=== PATIENT | male | born 1985 | race Caucasian/White ===

== ENCOUNTER 2021-05-10 21:41 | Emergency (ER) | payer SELFPAY ==
[~2021-05-10] VITALS: Ht 162.6 cm; Wt 82.0 kg
[2021-05-10] MEDS ORDERED: MAGNESIUM/ALUMINUM HYDROXIDE/SIMETHICONE 30ML UDC PO STA (22:50)
[2021-05-10] MEDS ORDERED: ONDANSETRON 4MG ODT PO ONE (23:00)
[2021-05-11 00:20] LABS: BASOPHILS % 0.3 % (0.0-2.0); EOSINOPHILS % 0.4 % (0.0-5.0); HEMATOCRIT. 40.7 % (42.0-52.0); LYMPHOCYTES % 15.1 % (20.0-50.0); MEAN CORPUSCULAR HEMOGLOBIN 29.8 pg (28.0-32.0); MEAN CORPUSCULAR VOLUME 86.8 fL (80.0-94.0); MEAN PLATELET VOLUME 8.3 fl (7.4-10.4); NEUTROPHILS % 81.2 % (40.0-76.0); PLATELET 274 x1000/uL (130-400); RED BLOOD CELL COUNT 4.68 mill/uL (4.7-6.1); RED CELL DISTRIBUTION WIDTH 13.2 % (11.6-14.6)
[2021-05-11 00:27] LABS: CHLORIDE 108 mEq/L (98-107)
[2021-05-11 00:31] LABS: ETHANOL BLOOD 270 mg/dL
[2021-05-11 01:40] VITALS: BP 123/64
== END 2021-05-11 01:46 | disposition home or self-care (01) ==
LOC: ER 21:41
DX: K29.20 Alcoholic gastritis without bleeding (principal); F10.229 Alcohol dependence with intoxication, unspecified; Y90.8 Blood alcohol level of 240 mg/100 ml or more
CPT/HCPCS: 36415; 80053; 80320; 85025; 86850; 86900; 99283; G0480